=== PATIENT | male | born 1970 | race Caucasian/White ===

== ENCOUNTER 2025-02-21 18:05 | Observation (INO) ==
--- NOTE | 2025-02-21 18:23 | Emergency Department Note ---
Impression & Plan Abdominal pain, Nausea & vomiting, Pancreatitis ED Provider Note HISTORY OF PRESENT ILLNESS: Patient is a 54-year-old male presenting with abdominal pain, nausea and vomiting. Patient reports he has a history of a sigmoid stricture. He reports they attempted a colonoscopy 6 weeks ago but he was found to have recurrence of his stricture and they could not complete the colonoscopy. He reports that since then he has had progressively worsening pain in his left lower quadrant. He reports that yesterday he had significant nausea and has not been able to tolerate anything by mouth. He states that he had vomiting yesterday as well as today. He denies any fevers or chills. He does report he is still having bowel movements but "it is really hard and I have to strain." ROS: as above PHYSICAL EXAM: Constitutional: Patient appears in no acute distress. HENT: Head: Normocephalic and atraumatic. Eyes: EOMI, PERRL Mouth/Throat: Mucous membranes moist. Neck: Trachea midline. Neck supple. Cardiovascular: RRR, No murmurs, rubs or gallops. Intact distal pulses. Pulmonary/Chest: No respiratory distress. Breath sounds clear and equal bilaterally. No wheezes or rales. Abdominal: Abdomen soft, no rebound or guarding. LLQ TTP Musculoskeletal: No edema, tenderness or deformity noted. Skin: Warm and dry. No rash, erythema, pallor or cyanosis Psychiatric: Appropriate mood and affect for situation. Neurological: Alert and keenly responsive. CN II-XII grossly intact, moving all extremities equally and fully. MDM: - Vitals signs stable - History obtained via patient. History as above. - Chronic conditions affecting care: Ulcerative colitis; HTN; HLD - Differential diagnoses include, but are not limited to: Bowel obstruction; pancreatitis; viral syndrome; electrolyte abnormality; dehydration; diverticulitis - Order placed for continuous cardiac monitoring. At this time, monitor showed rate of 60 bpm with normal sinus rhythm, per my interpretation. - External medical records reviewed. Colonoscopy dated 12/26/2024 was reviewed. Patient was noted to have intrinsic severe stenosis measuring of unknown length x 9 mm at the sigmoid colon and was transversed and dilated. - Laboratory workup interpreted by myself showed normal WBC; stable electrolytes; normal AST/ALT; elevated lipase (123) - UA negative for infection - Patient initially given 4 mg IV zofran and 4 mg IV morphine in ER. On reassessment, patient became nauseous and again vomited. He was given 1 L normal saline and 4 mg IV Zofran. - CT abdomen/pelvis with IV contrast showed multifocal wall thickening of the large and small bowel loops concerning for Crohn's disease or infection. Noted to have dilation of the jejunum which could be due to ileus. - Given patient's persistent abdominal pain and nausea on reassessment, will discuss case with hospitalist service for admission for pancreatitis. - Discussion was had with case assembler about patient's case and need for admission - Hospitalist consulted for admission - Patient admitted to [facility] hospitalist service for further evaluation and management. ASSESSMENT AND PLAN: Diagnosis: abdominal pain; nausea and vomiting; pancreatitis Plan: admit Past Med/Surg History Problem List (Updated 02/21/25 @ 20:42 by Kyleigh Villanueva MD) Pancreatitis (Acute) Nausea & vomiting (Acute) Abdominal pain (Acute) Inguinal hernia bilateral, non-recurrent Periodic limb movement disorder (PLMD) Other ejaculatory dysfunction BPH w urinary obs/LUTS Sigmoid stricture Fatty liver Arthritis of knee Hyperlipemia Anxiety and depression Hypertension Alcoholism in recovery Ulcerative colitis (Acute) Medical History Recovering alcoholic Medical marijuana use Umbilical hernia Anxiety and depression Ulcerative colitis History of Lyme disease Osteoarthritis Fatty liver Hyperlipidemia Hypertension Sacral fracture (05/2024) Thoracic vertebral fracture (05/2024) Pubic ramus fracture (05/2024) Viral hepatitis C without hepatic coma Closed TBI (traumatic brain injury) Surgical History H/O pelvic surgery History of colonoscopy (12/2018) History of gastrostomy tube placement History of tracheostomy History of tooth extraction Family History Brother Alcoholism Anxiety Cardiac disorder Depression Drug abuse Hypertension Kidney stones Myocardial infarction Grandfather (Maternal) Colorectal cancer Father Alcoholism Anxiety Cardiac disorder Depression Drug abuse Hypertension Kidney stones Mother Anxiety Depression Hypertension Breast cancer Other No family history of adverse response to anesthesia Denies family history of Ovarian cancer Prostate cancer Social History Smoking Status: Never smoker Tobacco Type: Cigarettes Age Started Using Tobacco: 15; Age Quit Using Tobacco: 28; packs per day: 1; Second Hand Exposure: Yes (hx); Do You Dip or Chew Tobacco: No; Hx Alcohol Use: Yes (recovering alcoholic, none for ~1 year.) Alcohol type: beer Hx Substance Use: Yes Prescribed Medications: Marijuana Last Used Substance Other:: 12/16/24 (advised on policy) Substance Use Type Other:: Medical THC daily Preferred Language: Amharic Communication Ability: Effective Visual Impairment: No Limitations Hearing Ability: Normal It Application Administrator Required: No Beliefs That Will Affect Care: None marital status: Current Living Situation: Spouse current occupational status: employed 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 Feels Safe at Home: Yes Diet: regular Diet Comment: regular caffeine: Yes during the past year weight has: increased > 10 lbs Dental Care, Regularly: No Physical Activity Frequency: 1-2 Times per Week Seatbelt Use: always Sunscreen Use: No Assistive Devices: Glasses Allergies Allergies Allergy/AdvReac Type Severity Reaction Status Date / Time No Known Allergies Allergy Verified 02/07/25 11:14 Home Meds Home Medications Medication Instructions Recorded Confirmed acetaminophen 500 mg tablet 500 mg PO Q6H PRN Pain 06/23/24 02/21/25 mesalamine 1.2 gram tablet,delayed 2.4 g PO BID 06/23/24 02/21/25 release losartan 100 mg tablet 100 mg PO QAM 12/16/24 02/21/25 vitamin D3 25 mcg (1,000 unit)-vit 1 tab PO QAM 12/16/24 02/21/25 K2 90 mcg disintegrating tablet pregabalin 50 mg capsule 50 mg PO TID PRN Pain 01/30/25 02/21/25 Previous Rx's Medication Instructions Recorded multivitamin-ferrous 1 tab PO QAM #60 tabs 09/16/18 fumarate-folic acid 18 mg-400 mcg tablet (Centrum) ferrous sulfate 325 mg (65 mg 325 mg PO BID #60 tabs 01/31/25 iron) tablet fluoxetine 20 mg capsule 60 mg (3 x 20 mg) PO QAM 90 days 02/13/25 #270 caps Results & Data (ED) Vital Signs Vital Signs - 24 hr 02/21/25 18:05 02/21/25 18:06 02/21/25 18:16 Temperature 36.6 C Temperature Source Temporal Artery Scan Pulse Rate 68 72 Pulse Rate [Right Finger] 67 Pulse Rate from SpO2 Sensor Respiratory Rate 18 16 Respiratory Effort / Characteristics Non-Labored Spontaneous Respiratory Depth Normal Blood Pressure 136/86 Blood Pressure [Right Arm] 121/83 Blood Pressure Mean 102 Blood Pressure Mean [Right Arm] 95 Pulse Oximetry 95 96 Oxygen Delivery Method Room Air Sepsis Recent Fever Within 48 Hours No Sepsis New/Unexplained Change in Mental Status No Sepsis Action Taken by Nursing No Action Required 02/21/25 18:18 02/21/25 18:21 02/21/25 18:21 Temperature Temperature Source Pulse Rate 68 65 Pulse Rate [Right Finger] Pulse Rate from SpO2 Sensor Respiratory Rate 16 24 Respiratory Effort / Characteristics Respiratory Depth Blood Pressure Blood Pressure [Right Arm] Blood Pressure Mean Blood Pressure Mean [Right Arm] Pulse Oximetry 95 Oxygen Delivery Method Room Air Sepsis Recent Fever Within 48 Hours Sepsis New/Unexplained Change in Mental Status Sepsis Action Taken by Nursing 02/21/25 18:24 02/21/25 18:25 02/21/25 18:25 Temperature Temperature Source Pulse Rate 56 L Pulse Rate [Right Finger] Pulse Rate from SpO2 Sensor Respiratory Rate 28 H Respiratory Effort / Characteristics Respiratory Depth Blood Pressure 130/87 130/87 Blood Pressure [Right Arm] Blood Pressure Mean 98 98 Blood Pressure Mean [Right Arm] Pulse Oximetry Oxygen Delivery Method Sepsis Recent Fever Within 48 Hours Sepsis New/Unexplained Change in Mental Status Sepsis Action Taken by Nursing 02/21/25 18:25 02/21/25 18:25 02/21/25 18:30 Temperature Temperature Source Pulse Rate Pulse Rate [Right Finger] Pulse Rate from SpO2 Sensor Respiratory Rate Respiratory Effort / Characteristics Respiratory Depth Blood Pressure 130/87 130/87 121/83 Blood Pressure [Right Arm] Blood Pressure Mean 98 98 90 Blood Pressure Mean [Right Arm] Pulse Oximetry Oxygen Delivery Method Sepsis Recent Fever Within 48 Hours Sepsis New/Unexplained Change in Mental Status Sepsis Action Taken by Nursing 02/21/25 18:30 02/21/25 18:30 02/21/25 18:30 Temperature Temperature Source Pulse Rate Pulse Rate [Right Finger] Pulse Rate from SpO2 Sensor Respiratory Rate Respiratory Effort / Characteristics Respiratory Depth Blood Pressure 121/83 121/83 121/83 Blood Pressure [Right Arm] Blood Pressure Mean 90 90 90 Blood Pressure Mean [Right Arm] Pulse Oximetry Oxygen Delivery Method Sepsis Recent Fever Within 48 Hours Sepsis New/Unexplained Change in Mental Status Sepsis Action Taken by Nursing 02/21/25 18:30 02/21/25 18:30 02/21/25 18:42 Temperature Temperature Source Pulse Rate 59 L 64 Pulse Rate [Right Finger] Pulse Rate from SpO2 Sensor 58 L 63 Respiratory Rate 23 15 Respiratory Effort / Characteristics Respiratory Depth Blood Pressure 121/83 Blood Pressure [Right Arm] Blood Pressure Mean 90 Blood Pressure Mean [Right Arm] Pulse Oximetry 95 96 Oxygen Delivery Method Sepsis Recent Fever Within 48 Hours Sepsis New/Unexplained Change in Mental Status Sepsis Action Taken by Nursing 02/21/25 18:51 02/21/25 19:00 02/21/25 19:00 Temperature Temperature Source Pulse Rate 60 58 L Pulse Rate [Right Finger] Pulse Rate from SpO2 Sensor 60 Respiratory Rate 21 20 Respiratory Effort / Characteristics Respiratory Depth Blood Pressure 138/86 Blood Pressure [Right Arm] Blood Pressure Mean 101 Blood Pressure Mean [Right Arm] Pulse Oximetry 97 90 Oxygen Delivery Method Sepsis Recent Fever Within 48 Hours Sepsis New/Unexplained Change in Mental Status Sepsis Action Taken by Nursing 02/21/25 19:00 02/21/25 19:00 02/21/25 19:00 Temperature Temperature Source Pulse Rate Pulse Rate [Right Finger] Pulse Rate from SpO2 Sensor Respiratory Rate Respiratory Effort / Characteristics Respiratory Depth Blood Pressure 138/86 138/86 138/86 Blood Pressure [Right Arm] Blood Pressure Mean 101 101 101 Blood Pressure Mean [Right Arm] Pulse Oximetry Oxygen Delivery Method Sepsis Recent Fever Within 48 Hours Sepsis New/Unexplained Change in Mental Status Sepsis Action Taken by Nursing 02/21/25 19:00 02/21/25 19:30 02/21/25 19:30 Temperature Temperature Source Pulse Rate Pulse Rate [Right Finger] Pulse Rate from SpO2 Sensor Respiratory Rate Respiratory Effort / Characteristics Respiratory Depth Blood Pressure 138/86 143/93 H 143/93 H Blood Pressure [Right Arm] Blood Pressure Mean 101 113 113 Blood Pressure Mean [Right Arm] Pulse Oximetry Oxygen Delivery Method Sepsis Recent Fever Within 48 Hours Sepsis New/Unexplained Change in Mental Status Sepsis Action Taken by Nursing 02/21/25 19:30 02/21/25 19:30 02/21/25 19:30 Temperature Temperature Source Pulse Rate Pulse Rate [Right Finger] Pulse Rate from SpO2 Sensor Respiratory Rate Respiratory Effort / Characteristics Respiratory Depth Blood Pressure 143/93 H 143/93 H 143/93 H Blood Pressure [Right Arm] Blood Pressure Mean 113 113 113 Blood Pressure Mean [Right Arm] Pulse Oximetry Oxygen Delivery Method Sepsis Recent Fever Within 48 Hours Sepsis New/Unexplained Change in Mental Status Sepsis Action Taken by Nursing 02/21/25 19:30 02/21/25 19:42 02/21/25 19:51 Temperature Temperature Source Pulse Rate 60 54 L 54 L Pulse Rate [Right Finger] Pulse Rate from SpO2 Sensor 62 53 L 53 L Respiratory Rate 14 14 23 Respiratory Effort / Characteristics Respiratory Depth Blood Pressure Blood Pressure [Right Arm] Blood Pressure Mean Blood Pressure Mean [Right Arm] Pulse Oximetry 97 96 95 Oxygen Delivery Method Sepsis Recent Fever Within 48 Hours Sepsis New/Unexplained Change in Mental Status Sepsis Action Taken by Nursing 02/21/25 20:00 02/21/25 20:00 02/21/25 20:00 Temperature Temperature Source Pulse Rate 53 L Pulse Rate [Right Finger] Pulse Rate from SpO2 Sensor 52 L Respiratory Rate 19 Respiratory Effort / Characteristics Respiratory Depth Blood Pressure 139/95 139/95 Blood Pressure [Right Arm] Blood Pressure Mean 106 106 Blood Pressure Mean [Right Arm] Pulse Oximetry 96 Oxygen Delivery Method Sepsis Recent Fever Within 48 Hours Sepsis New/Unexplained Change in Mental Status Sepsis Action Taken by Nursing 02/21/25 20:00 02/21/25 20:00 02/21/25 20:00 Temperature Temperature Source Pulse Rate Pulse Rate [Right Finger] Pulse Rate from SpO2 Sensor Respiratory Rate Respiratory Effort / Characteristics Respiratory Depth Blood Pressure 139/95 139/95 139/95 Blood Pressure [Right Arm] Blood Pressure Mean 106 106 106 Blood Pressure Mean [Right Arm] Pulse Oximetry Oxygen Delivery Method Sepsis Recent Fever Within 48 Hours Sepsis New/Unexplained Change in Mental Status Sepsis Action Taken by Nursing 02/21/25 20:12 Temperature Temperature Source Pulse Rate 58 L Pulse Rate [Right Finger] Pulse Rate from SpO2 Sensor 54 L Respiratory Rate 19 Respiratory Effort / Characteristics Respiratory Depth Blood Pressure Blood Pressure [Right Arm] Blood Pressure Mean Blood Pressure Mean [Right Arm] Pulse Oximetry 95 Oxygen Delivery Method Sepsis Recent Fever Within 48 Hours Sepsis New/Unexplained Change in Mental Status Sepsis Action Taken by Nursing Laboratory Data 02/21/25 18:21 02/21/25 19:09 Lab Results 02/21/25 02/21/25 02/21/25 Range/Units 18:21 18:29 19:09 WBC 9.37 (4.8-10.8) K/ul RBC 4.83 (4.70-6.10) M/uL Hgb 14.4 (14.0-18.0) g/dL Hct 42.1 (42.0-52.0) % MCV 87.2 (80.0-100.0) fL MCH 29.8 (25.0-34.0) pg MCHC 34.2 (32.0-36.0) g/dL RDW Std Deviation 44.2 (36.4-46.3) fL RDW Coeff of Duran 13.8 (11.5-14.5) % Plt Count 338 (130-400) K/uL MPV 9.5 (9.4-12.4) fL Immature Gran % (Auto) 0.5 % Neut % (Auto) 59.1 % Lymph % (Auto) 27.3 % Wetzel % (Auto) 9.1 % Eos % (Auto) 3.6 % Baso % (Auto) 0.4 % Neut # (Auto) 5.53 (1.40-6.50) K/uL Lymph # (Auto) 2.56 (1.20-3.40) K/uL Wetzel # (Auto) 0.85 H (0.11-0.59) K/uL Eos # (Auto) 0.34 (0.00-0.50) K/uL Baso # (Auto) 0.04 (0.00-0.20) K/uL Immature Gran # (Auto) 0.05 (0.01-0.20) K/uL Sodium 137 (136-145) mmol/L Potassium TNP 3.6 Chloride 103 (98-107) mmol/L Carbon Dioxide 26 (21-32) mmol/L Anion Gap 8 (3-11) BUN 9 (6-23) mg/dl Creatinine 0.88 (0.6-1.4) mg/dl Est Cr Clr Drug Dosing 102.9 ml/min eGFR 100.92 BUN/Creatinine Ratio 10.2 (10-20) Glucose 72 (70-99(Fasting)) mg/dl Lactate 1.0 (0.4-2.0) mmol/L Calcium 9.1 (8.6-10.3) mg/dl Total Bilirubin 0.3 (0.2-1.0) mg/dl AST TNP 17 ALT 16 (7-52) U/L Alkaline Phosphatase 103 (34-104) U/L Total Protein 7.5 (6.0-8.3) gm/dl Albumin 4.2 (3.4-5.0) gm/dl Globulin 3.3 (2.5-4.0) gm/dl Albumin/Globulin Ratio 1.3 (0.9-2) Lipase 123 H (11-82) U/L Urine Color Urine Appearance (Clear) Urine pH (4.5-7.5) Ur Specific [place] (1.000-1.030) Urine Protein (Negative) Urine Glucose (UA) (Negative) Urine Ketones (Negative) Urine Blood (Negative) Urine Nitrite (Negative) Urine Bilirubin (Negative) Urine Urobilinogen (Negative) Ur Leukocyte Esterase (Negative) Urine WBC (Auto) (0-5) /hpf Urine RBC (Auto) (0-2) /hpf U Hyaline Cast (Auto) (0-2) /lpf U Epithel Cells (Auto) (0-2) /hpf Urine Bacteria (Auto) (None Seen) Urine Comment 02/21/25 Range/Units 19:25 WBC (4.8-10.8) K/ul RBC (4.70-6.10) M/uL Hgb (14.0-18.0) g/dL Hct (42.0-52.0) % MCV (80.0-100.0) fL MCH (25.0-34.0) pg MCHC (32.0-36.0) g/dL RDW Std Deviation (36.4-46.3) fL RDW Coeff of Duran (11.5-14.5) % Plt Count (130-400) K/uL MPV (9.4-12.4) fL Immature Gran % (Auto) % Neut % (Auto) % Lymph % (Auto) % Wetzel % (Auto) % Eos % (Auto) % Baso % (Auto) % Neut # (Auto) (1.40-6.50) K/uL Lymph # (Auto) (1.20-3.40) K/uL Wetzel # (Auto) (0.11-0.59) K/uL Eos # (Auto) (0.00-0.50) K/uL Baso # (Auto) (0.00-0.20) K/uL Immature Gran # (Auto) (0.01-0.20) K/uL Sodium (136-145) mmol/L Potassium Chloride (98-107) mmol/L Carbon Dioxide (21-32) mmol/L Anion Gap (3-11) BUN (6-23) mg/dl Creatinine (0.6-1.4) mg/dl Est Cr Clr Drug Dosing ml/min eGFR BUN/Creatinine Ratio (10-20) Glucose (70-99(Fasting)) mg/dl Lactate (0.4-2.0) mmol/L Calcium (8.6-10.3) mg/dl Total Bilirubin (0.2-1.0) mg/dl AST ALT (7-52) U/L Alkaline Phosphatase (34-104) U/L Total Protein (6.0-8.3) gm/dl Albumin (3.4-5.0) gm/dl Globulin (2.5-4.0) gm/dl Albumin/Globulin Ratio (0.9-2) Lipase (11-82) U/L Urine Color Yellow Urine Appearance Clear (Clear) Urine pH 6.0 (4.5-7.5) Ur Specific [place] 1.025 (1.000-1.030) Urine Protein Negative (Negative) Urine Glucose (UA) Negative (Negative) Urine Ketones Trace H (Negative) Urine Blood Negative (Negative) Urine Nitrite Negative (Negative) Urine Bilirubin Negative (Negative) Urine Urobilinogen Negative (Negative) Ur Leukocyte Esterase 1+ H (Negative) Urine WBC (Auto) 0-5 (0-5) /hpf Urine RBC (Auto) 0-2 (0-2) /hpf U Hyaline Cast (Auto) 0-2 (0-2) /lpf U Epithel Cells (Auto) 0-2 (0-2) /hpf Urine Bacteria (Auto) None Seen (None Seen) Urine Comment Administered Medications Discontinued Medications Sodium Chloride (Nss) 1,000 mls @ 999 mls/hr IV .Q1H1M ONE Stop: 02/21/25 19:20 Last Infusion: 02/21/25 20:10 Dose: Infused Documented By: michael Admin: 02/21/25 18:34 Dose: 999 mls/hr Documented By: michael Ioversol (Optiray 320 100ml) 90 ml IV ONCE ONE Stop: 02/21/25 19:14 Last Admin: 02/21/25 19:13 Dose: 90 ml Documented By: RUTH Morphine Sulfate (Morphine Sulfate 4 Mg/Ml 1 Ml Carp\\Vial) 4 mg IV NOW STA Stop: 02/21/25 18:21 Last Admin: 02/21/25 18:33 Dose: 4 mg Documented By: michael Ondansetron HCl (Ondansetron Inj 2 Mg/Ml 2 Ml Vial) 4 mg IV NOW STA Stop: 02/21/25 18:21 Last Admin: 02/21/25 18:33 Dose: 4 mg Documented By: michael Ondansetron HCl (Ondansetron Inj 2 Mg/Ml 2 Ml Vial) 4 mg IV NOW STA Stop: 02/21/25 19:22 Last Admin: 02/21/25 19:27 Dose: 4 mg Documented By: michael Imaging Data Radiologist's Impression: Abdomen/Pelvis CT 02/21/25 18:21 Clinical History: Left lower quadrant pain Technique: Axial computed tomography images were obtained of the abdomen and pelvis after the administration of intravenous contrast. Comparison is made to the prior CT dated 12/26/2024. Findings: The liver is overall of normal size, attenuation, and contour with no sign of cirrhosis or significant fatty infiltration. No liver mass lesion is seen. The portal vein is patent. The gallbladder appears unremarkable. No bile duct dilatation is noted. The spleen is of normal size. No focal splenic lesion is evident. The pancreas appears normal with no sign of acute or chronic pancreatitis and no mass lesion noted. The pancreatic duct is of normal caliber. The adrenal glands appear unremarkable. No definite renal or proximal ureteral calculi are seen on this contrast-enhanced study. There is no hydronephrosis or perinephric stranding. No renal mass lesion is identified. There are bilateral renal cysts, measuring up to 1.5 cm The aorta is of normal caliber. No abdominal adenopathy is seen. There is a small umbilical hernia containing only fat There is a small hiatal hernia. There is prominence of the gastric wall the could be due to incomplete distention. There is mild prominence of the jejunum that could be due to ileus. There is no definite sign of small bowel obstruction. There is multifocal small bowel wall thickening. There is also mild wall thickening of the distal transverse colon and the descending colon. No free intraperitoneal fluid or air is identified. No distal ureteral or bladder calculi are seen. No bladder mass lesion is evident. The iliac arteries are of normal caliber. No pelvic adenopathy is noted. There is bilateral lower lobe atelectasis. There are old pelvic fractures with internal fixation in place Impression: 1. Multifocal wall thickening of small and large bowel loops, concerning for infection or Crohn's disease 2. Mild dilatation of the jejunum the could be due to ileus. A partial small bowel obstruction is less likely but cannot be excluded 3. Bilateral renal cysts 4. Small hiatal hernia ACT 112: Positive. There are findings on this exam that require communication between the performing entity and the patient following Patient Test Result Information Act ([place] ACT 112) guidelines. Electronically signed by Cory Stahl 02-21-2025 7:39 PM Discharge Plan Visit Data Chief Complaint: GI Assessment Stated Complaint: RESTRICTED COLON, COMPLICATIONS ED Provider: Kyleigh Villanueva Discharge Problem: Abdominal pain, Nausea & vomiting, Pancreatitis Patient Disposition: Admitted As Inpatient Condition: Fair Forms Stand Alone Forms: [facility] [employer] Prescriptions Prescriptions: No Action ferrous sulfate 325 mg (65 mg iron) tablet 325 mg PO BID Qty: 60 0RF fluoxetine 20 mg capsule 60 mg PO QAM 90 Days Qty: 270 3RF Centrum 18-400 mg-mcg tablet 1 tab PO QAM Qty: 60 0RF pregabalin 50 mg capsule 50 mg PO TID PRN (Reason: Pain) vitamin D3-vitamin K2 25 mcg (1,000 unit)-90 mcg Tablet,Disintegrating 1 tab PO QAM losartan 100 mg tablet 100 mg PO QAM acetaminophen 500 mg Tablet 500 mg PO Q6H PRN (Reason: Pain) mesalamine 1.2 gram tablet,delayed release (DR/EC) 2.4 g PO BID Referrals Referrals: Rosanna Childers DO [Primary Care Provider] -
[2025-02-21] MEDS: ONDANSETRON INJ 2 MG/ML 2 ML VIAL IV STA ×2 (18:33→19:27)
[2025-02-21] MEDS: MoRPHine SULFATE 4 MG/ML 1 ML CARP\\VIAL IV STA (18:33)
[2025-02-21] MEDS: SODIUM CHLORIDE 0.9% 1,000 ML IV ONE (18:34)
[2025-02-21 18:37] LABS: Hematocrit (blood only) 42.1 % (42.0-52.0); Hemoglobin 14.4 g/dL (14.0-18.0); Immature Granulocytes # (auto) 0.05 K/uL (0.01-0.20); Immature Granulocytes % (auto) 0.5 %; Mean Corpuscular Hemoglobin 29.8 pg (25.0-34.0); Mean Corpuscular Volume 87.2 fL (80.0-100.0); Platelet Count 338 K/uL (130-400); RDW Standard Deviation 44.2 fL (36.4-46.3); Red Blood Count 4.83 M/uL (4.70-6.10); White Blood Count 9.37 K/ul (4.8-10.8)
[2025-02-21 19:03] LABS: Alanine Aminotransferase 16 U/L (7-52); Albumin Globulin Ratio 1.3 (0.9-2); Albumin Level 4.2 gm/dl (3.4-5.0); Alkaline Phosphatase 103 U/L (34-104); Anion Gap 8 (3-11); Bilirubin,Total 0.3 mg/dl (0.2-1.0); Blood Urea Nitrogen 9 mg/dl (6-23); Calcium 9.1 mg/dl (8.6-10.3); Carbon Dioxide 26 mmol/L (21-32); Chloride 103 mmol/L (98-107); Creatinine Clr Calc Pharmacy 102.9 ml/min; Globulin 3.3 gm/dl (2.5-4.0); Glucose 72 mg/dl (70-99(Fasting)); Lipase 123 U/L (11-82); Sodium 137 mmol/L (136-145); Total Protein 7.5 gm/dl (6.0-8.3)
[2025-02-21] MEDS: OPTIRAY 320 100ml IV ONE (19:13)
--- NOTE | 2025-02-21 19:39 | CT Scan Report ---
Clinical History: Left lower quadrant pain Technique: Axial computed tomography images were obtained of the abdomen and pelvis after the administration of intravenous contrast. Comparison is made to the prior CT dated 12/26/2024. Findings: The liver is overall of normal size, attenuation, and contour with no sign of cirrhosis or significant fatty infiltration. No liver mass lesion is seen. The portal vein is patent. The gallbladder appears unremarkable. No bile duct dilatation is noted. The spleen is of normal size. No focal splenic lesion is evident. The pancreas appears normal with no sign of acute or chronic pancreatitis and no mass lesion noted. The pancreatic duct is of normal caliber. The adrenal glands appear unremarkable. No definite renal or proximal ureteral calculi are seen on this contrast-enhanced study. There is no hydronephrosis or perinephric stranding. No renal mass lesion is identified. There are bilateral renal cysts, measuring up to 1.5 cm The aorta is of normal caliber. No abdominal adenopathy is seen. There is a small umbilical hernia containing only fat There is a small hiatal hernia. There is prominence of the gastric wall the could be due to incomplete distention. There is mild prominence of the jejunum that could be due to ileus. There is no definite sign of small bowel obstruction. There is multifocal small bowel wall thickening. There is also mild wall thickening of the distal transverse colon and the descending colon. No free intraperitoneal fluid or air is identified. No distal ureteral or bladder calculi are seen. No bladder mass lesion is evident. The iliac arteries are of normal caliber. No pelvic adenopathy is noted. There is bilateral lower lobe atelectasis. There are old pelvic fractures with internal fixation in place Impression: 1. Multifocal wall thickening of small and large bowel loops, concerning for infection or Crohn's disease 2. Mild dilatation of the jejunum the could be due to ileus. A partial small bowel obstruction is less likely but cannot be excluded 3. Bilateral renal cysts 4. Small hiatal hernia ACT 112: Positive. There are findings on this exam that require communication between the performing entity and the patient following Patient Test Result Information Act ([place] ACT 112) guidelines. Electronically signed by Cory Stahl 02-21-2025 7:39 PM
[2025-02-21 19:46] LABS: Appearance Urine Clear (Clear); Bacteria Urine Automated None Seen (None Seen); Cast Urine Automated 0-2 /lpf (0-2); Epithelial Cell Urine Auto 0-2 /hpf (0-2); Glucose Urine UA Negative (Negative); RBC Urine Automated 0-2 /hpf (0-2); WBC Urine Automated 0-5 /hpf (0-5)
[2025-02-21 19:47] LABS: Potassium 3.6 mmol/L (3.5-5.1)
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
[2025-02-21 20:45] LABS: Magnesium 1.9 mg/dl (1.7-2.4)
[2025-02-21] MEDS: PANTOprazole 40 MG/10 ML SYR IV ONE (21:04)
[2025-02-21] MEDS: ACETAMINOPHEN 1,000 MG/100 ML VIAL IV STA (21:04)
[2025-02-21] MEDS ORDERED: MELATONIN 3 MG TAB PO PRN (21:51)
[2025-02-21] MEDS ORDERED: PREGABALIN 50 MG CAP PO PRN (21:51)
[2025-02-21] MEDS ORDERED: ONDANSETRON INJ 2 MG/ML 2 ML VIAL IV PRN (21:51)
[2025-02-21] MEDS ORDERED: MoRPHine SULFATE 4 MG/ML 1 ML CARP\\VIAL IV PRN (21:51)
[2025-02-21] MEDS ORDERED: MoRPHine SULFATE 2 MG/ML CARP IV PRN (21:51)
[2025-02-21] MEDS ORDERED: DOCUSATE SODIUM 100 MG CAP PO PRN (21:51)
[2025-02-21] MEDS: LACTATED RINGER'S 1,000 ML IV SCH (22:09)
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
[2025-02-21] MEDS: MESALAMINE 1.2 GM TABDR PO SCH (22:58)
[2025-02-22 07:31] LABS: Hematocrit (blood only) 40.4 % (42.0-52.0); Hemoglobin 13.3 g/dL (14.0-18.0); Immature Granulocytes # (auto) 0.04 K/uL (0.01-0.20); Immature Granulocytes % (auto) 0.5 %; Mean Corpuscular Hemoglobin 28.7 pg (25.0-34.0); Mean Corpuscular Volume 87.3 fL (80.0-100.0); Platelet Count 276 K/uL (130-400); RDW Standard Deviation 44.0 fL (36.4-46.3); Red Blood Count 4.63 M/uL (4.70-6.10); White Blood Count 7.45 K/ul (4.8-10.8)
[2025-02-22 08:04] LABS: Alanine Aminotransferase 13.0 U/L (7-52); Albumin Globulin Ratio 1.3 (0.9-2); Albumin Level 3.5 gm/dl (3.4-5.0); Alkaline Phosphatase 88.0 U/L (34-104); Anion Gap 6.0 (3-11); Bilirubin,Total 0.4 mg/dl (0.2-1.0); Blood Urea Nitrogen 7.0 mg/dl (6-23); Calcium 8.5 mg/dl (8.6-10.3); Carbon Dioxide 27.0 mmol/L (21-32); Chloride 108.0 mmol/L (98-107); Creatinine Clr Calc Pharmacy 113.2 ml/min; Globulin 2.8 gm/dl (2.5-4.0); Glucose 87.0 mg/dl (70-99(Fasting)); Lipase 69.0 U/L (11-82); Magnesium 1.9 mg/dl (1.7-2.4); Potassium 4.0 mmol/L (3.5-5.1); Sodium 141.0 mmol/L (136-145); Total Protein 6.3 gm/dl (6.0-8.3)
[2025-02-22] MEDS: LOSARTAN POTASSIUM 50 MG TAB PO SCH (08:49)
[2025-02-22] MEDS: PANTOprazole 40 MG/10 ML SYR IV SCH (08:50)
[2025-02-22] MEDS: 4.5GM X1 IV STA (10:57)
--- NOTE | 2025-02-22 12:32 | Hospitalist Progress Note ---
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 Patient presented to the ED due to nausea and vomiting x 2 days as well as poor p.o. intake and left lower quadrant abdominal pain that has been progressive since his colonoscopy approximately 6 weeks ago. Workup in the ED revealed possible ileus versus SBO on CT, laboratories revealed elevated lipase however pancreas unremarkable on imaging. Patient is being admitted for nausea control, pain control, and to have further eval by general surgery. #Intractable abdominal pain | UC with sigmoid stricture known sigmoid stricture with progressive pain since colonoscopy 12/26. AP CT with ileus versus possible partial SBO. Patient is mildly distended with nausea/vomiting - will treat as a SBO for now. General surgery and GI teams consulted - possibly will require colon resection during this hospitalization Continue IVF resuscitation with LR 80 mL/hour x3 L Started Zosyn for antibiotic coverage of colitis Nausea control with scheduled pantoprazole, Zofran prn Pain control with IV Tylenol prn, Morphine 2/4mg for breakthrough pain Diet advanced to full liquids by general surgery Continue mesalamine Trend CBC #Elevated lipase lipase 123 on admission, now WNL at 69. AP CT showed pancreas unremarkable. Trend CMP and lipase #HTNcontinue losartan #Mental healthcontinue fluoxetine VTE ppx: SCDs, low risk and possible surgical management Dispo: Continued inpatient stay. Possibly will require surgical intervention during this hospitalization Started IV Zosyn Updated at bedside Admission and Anticipated Discharge Date Admission Date: February 21, 2025 Subjective Patient seen and evaluated at bedside with his present. He reports an improvement in his abdominal pain compared to yesterday. He denies any nausea or vomiting. He continues to pass gas. We discussed starting IV Zosyn for his colitis flare. He reports surgery plan is to perform surgical intervention possibly tomorrow. No additional complaints or concerns at this time. Physical Exam Physical Exam: General: No acute distress, nondiaphoretic, well-developed, well-nourished. Skin: Warm, dry. No rashes or peripheral edema noted. Cardiac: Regular rate and rhythm without murmurs gallops or rubs. Pulm: Clear to auscultation bilaterally without wheezes, rales or rhonchi. Normal respiratory effort. 95% on room air. Abdominal: Soft. Mild distention. Mild tenderness to palpation of lower quadrants bilaterally. No rebound or guarding. Bowel sounds present. Neuro: A&O x3. No focal neurological deficits. Results & Data Results & Data Vital Signs (Past 12 Hours) Vital Signs Temp Pulse Resp BP Pulse Ox O2 Del Method 02/22/25 08:02 97.6 F 57 L 19 147/91 H 95 Room Air Laboratory Results Reviewed CBC with differential, CMP/chemistries, UA Diagnostic Findings Reviewed CT A/P PG Care Time/CCT Total # of Minutes Spent Total Time Spent with Patient: Total time spent is greater than 50% in coordination of care (as documented) at patient's floor/unit and/or counseling patient: Coding Level of Care Code 02270 SUB INP/OBS CARE 3/50MIN Diagnoses Abdominal pain R10.9 Nausea & vomiting R11.2 Sigmoid stricture K56.699 Elevated lipase R74.8"
[2025-02-22] MEDS: PIPERACILLIN/TAZOBACTAM 4.5 GM/100 ML BAG IV SCH (15:44)
--- NOTE | 2025-02-22 17:19 | Surgery Progress Note ---
Date of Service February 22, 2025 Assessment & Plan (1) Ulcerative colitis with complication: Plan I agree with GI consult to see what they also think in regards to management of this patient. Briefly this patient is a 54-year-old male with ulcerative colitis, on mesalamine who has colonic stricturing disease. He was recently scoped by Dr. Ken and was found to have sigmoid stricture and strictures proximal to this as well. Dr. Ken feels that his rectum was relatively dis ease-free. Given this, he may be a good candidate for total abdominal colectomy with ileorectal anastomosis but will see with GI if there is anything else to offer as well. Admission and Anticipated Discharge Date Admission Date: February 21, 2025 Subjective Patient reports feeling improved, after discussing his history with him and his , it seems that his symptoms are intermittent with colonic obstruction type symptoms. 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 Review of Systems Review of Systems: All systems reviewed & are unremarkable except as noted in HPI & below Physical Exam Constitutional: WD/WN, vitals as above Eyes: PERRL, conjunctivae normal, anicteric sclerae ENMT: external ear and nose normal, oropharynx normal Neck: trachea midline, no thyromegaly Respiratory: Normal effort Cardiovascular: Rate/Rhythm: regular rate Gastrointestinal (Abdomen): Soft, nondistended, nontender Psychiatric: A+Ox3, euthymic affect Results & Data Vital Signs (Past 12 Hours) Vital Signs Temp Pulse Resp BP Pulse Ox O2 Del Method 02/22/25 15:08 36.8 C 53 L 20 138/79 97 Room Air 02/22/25 08:02 36.4 C 57 L 19 147/91 H 95 Room Air PG Care Time/CCT Total # of Minutes Spent Total Time Spent with Patient: Total time spent is greater than 50% in coordination of care (as documented) at patient's floor/unit and/or counseling patient: Coding Level of Care Code 91935 SUB INP/OBS CARE 2/35MIN Diagnoses Ulcerative colitis with complication K51.919
[2025-02-23 07:14] LABS: Hematocrit (blood only) 40.6 % (42.0-52.0); Hemoglobin 13.9 g/dL (14.0-18.0); Immature Granulocytes # (auto) 0.03 K/uL (0.01-0.20); Immature Granulocytes % (auto) 0.4 %; Mean Corpuscular Hemoglobin 29.2 pg (25.0-34.0); Mean Corpuscular Volume 85.3 fL (80.0-100.0); Platelet Count 267 K/uL (130-400); RDW Standard Deviation 42.5 fL (36.4-46.3); Red Blood Count 4.76 M/uL (4.70-6.10); White Blood Count 8.36 K/ul (4.8-10.8)
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
[2025-02-23 07:43] LABS: Alanine Aminotransferase 10.0 U/L (7-52); Albumin Globulin Ratio 1.2 (0.9-2); Albumin Level 3.6 gm/dl (3.4-5.0); Alkaline Phosphatase 92.0 U/L (34-104); Anion Gap 6.0 (3-11); Bilirubin,Total 0.4 mg/dl (0.2-1.0); Blood Urea Nitrogen 6.0 mg/dl (6-23); Calcium 8.6 mg/dl (8.6-10.3); Carbon Dioxide 27.0 mmol/L (21-32); Chloride 106.0 mmol/L (98-107); Creatinine Clr Calc Pharmacy 94.3 ml/min; Globulin 3.0 gm/dl (2.5-4.0); Glucose 93.0 mg/dl (70-99(Fasting)); Lipase 98.0 U/L (11-82); Magnesium 1.8 mg/dl (1.7-2.4); Potassium 3.6 mmol/L (3.5-5.1); Sodium 139.0 mmol/L (136-145); Total Protein 6.6 gm/dl (6.0-8.3)
--- NOTE | 2025-02-23 09:47 | Surgery Progress Note ---
<Statement entered by Migdalia Poole MD - 02/23/25 12:56> I independently saw and examined the patient, and I agree with the assessment and plan of care. Date of Service February 23, 2025 Assessment & Plan (1) Ulcerative colitis with complication: Plan: Patient here w/ ulcerative colitis with stricturing colonic disease dealing with intermittent symptoms for quite some time we appreciate GI and medicines assistance we are tentatively planning on total abdominal colectomy with ileorectal anastomosis tomorrow plan for bowel prep today and clears npo at midnight, hold blood thinners Admission and Anticipated Discharge Date Admission Date: February 21, 2025 Subjective Patient reports tolerating a diet. Reports ongoing symptoms for quite some time. Physical Exam Physical Exam: awake/alert, no distress Gastrointestinal (Abdomen): Percussion/Palpation: abdomen soft Results & Data Vital Signs (Past 12 Hours) Vital Signs Temp Pulse Resp BP Pulse Ox O2 Del Method 02/23/25 07:26 97.5 F L 52 L 17 161/61 H 98 Room Air 02/22/25 22:47 97.4 F L 50 L 16 150/78 H 97 Room Air PG Care Time/CCT Total # of Minutes Spent Total Time Spent with Patient: Total time spent is greater than 50% in coordination of care (as documented) at patient's floor/unit and/or counseling patient: Coding Level of Care Code 41470 SUB INP/OBS CARE 04/16MIN Diagnoses Ulcerative colitis with complication K51.919
[2025-02-23] MEDS: metroNIDAZOLE 500 MG TAB PO ONE ×3 (15:09→22:00)
[2025-02-23] MEDS: NEOMYCIN SULFATE 500 MG TAB PO ONE ×3 (15:10→22:00)
[2025-02-23] MEDS: POLYETHYLENE (MIRALAX) 17 GM PACK PO ONE (17:13)
--- NOTE | 2025-02-23 19:55 | Hospitalist Progress Note ---
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 Patient presented to the ED due to nausea and vomiting x 2 days as well as poor p.o. intake and left lower quadrant abdominal pain that has been progressive since his colonoscopy approximately 6 weeks ago. Workup in the ED revealed possible ileus versus SBO on CT, laboratories revealed elevated lipase however pancreas unremarkable on imaging. Patient is being admitted for nausea control, pain control, and to have further eval by general surgery. #Intractable abdominal pain | UC with sigmoid stricture known sigmoid stricture with progressive pain since colonoscopy 12/26. AP CT with ileus versus possible partial SBO. Patient is mildly distended with nausea/vomiting - will treat as a SBO for now. General surgery and GI teams consulted -planning on total colectomy with ileorectal anastomosis tomorrow 02/24 Continue IVF resuscitation with LR 80 mL/hour x3 L Started Zosyn for antibiotic coverage of colitis Nausea control with scheduled pantoprazole, Zofran prn Pain control with IV Tylenol prn, Morphine 2/4mg for breakthrough pain Diet advanced to full liquids by general surgery Continue mesalamine Trend CBC #Elevated lipase Lipase 123 on admission -> 69 -> 98 - AP CT showed pancreas unremarkable Trend CMP and lipase #HTNcontinue losartan #Mental healthcontinue fluoxetine VTE ppx: SCDs, low risk and possible surgical management Dispo: Continued inpatient stay. Anticipate surgery tomorrow 02/24 Admission and Anticipated Discharge Date Admission Date: February 21, 2025 Subjective Patient seen and evaluated at bedside this morning. He denies any abdominal pain or nausea at this time. He had multiple questions regarding his surgery tomorrow. I answered them to the best of his ability and encouraged him to ask Dr. Poole when he sees her. No additional complaints or concerns at this time. Physical Exam Physical Exam: General: No acute distress, nondiaphoretic, well-developed, well-nourished. Skin: Warm, dry. No rashes or peripheral edema noted. Cardiac: Regular rate and rhythm without murmurs gallops or rubs. Pulm: Clear to auscultation bilaterally without wheezes, rales or rhonchi. Normal respiratory effort. 99% on room air. Abdominal: Soft. Mild distention. Mild tenderness to palpation of lower quadrants bilaterally. No rebound or guarding. Bowel sounds present. Neuro: A&O x3. No focal neurological deficits. Results & Data Results & Data Vital Signs (Past 12 Hours) Vital Signs Temp Pulse Resp BP Pulse Ox O2 Del Method 02/23/25 14:40 97.9 F 58 L 16 155/90 H 99 Room Air Laboratory Results Reviewed CBC with differential, CMP PG Care Time/CCT Total # of Minutes Spent Total Time Spent with Patient: Total time spent is greater than 50% in coordination of care (as documented) at patient's floor/unit and/or counseling patient: Coding Level of Care Code 59361 SUB INP/OBS CARE 2/35MIN Diagnoses Abdominal pain R10.9 Nausea & vomiting R11.2 Sigmoid stricture K56.699 Elevated lipase R74.8"
[2025-02-23] MEDS: ACETAMINOPHEN 1,000 MG/100 ML VIAL IV PRN (20:06)
[2025-02-23] MEDS ORDERED: NEOMYCIN SULFATE 500 MG TAB PO ONE (22:00)
[2025-02-24 06:39] LABS: Hematocrit (blood only) 42.5 % (42.0-52.0); Hemoglobin 14.6 g/dL (14.0-18.0); Mean Corpuscular Hemoglobin 29.0 pg (25.0-34.0); Mean Corpuscular Volume 84.3 fL (80.0-100.0); Platelet Count 307 K/uL (130-400); RDW Standard Deviation 42.0 fL (36.4-46.3); Red Blood Count 5.04 M/uL (4.70-6.10); White Blood Count 9.05 K/ul (4.8-10.8)
[2025-02-24 07:00] LABS: Anion Gap 8.0 (3-11); Blood Urea Nitrogen 6.0 mg/dl (6-23); Calcium 9.0 mg/dl (8.6-10.3); Carbon Dioxide 21.0 mmol/L (21-32); Chloride 109.0 mmol/L (98-107); Creatinine Clr Calc Pharmacy 96.3 ml/min; Glucose 101.0 mg/dl (70-99(Fasting)); Lipase 79.0 U/L (11-82); Potassium 3.5 mmol/L (3.5-5.1); Sodium 138.0 mmol/L (136-145)
[2025-02-24 07:12] VITALS: BP 157/97; PULSE 68; RESP 17; TEMP 97.7; O2SAT 97
--- NOTE | 2025-02-24 09:41 | Surgery Progress Note ---
Date of Service February 24, 2025 Assessment & Plan (1) Colitis: Plan: Unclear etiology, given that he has had colonic strictures and multiple CAT scans, each with different findings, with his CAT scan, he had some thickening of small bowel but this was not seen on prior CAT scan and none of the CAT scans show stricture where it is so severe that it is causing an obstruction. In addition, the patient has not tried other medications to treat IBD other than me salamine and even with that he was not accurately taking it. Given that he is nontoxic and is tolerating oral intake, we will try nonoperative management at this time. I had a lengthy discussion with him today regarding risks and benefits of surgery, given that he reports that he has not really been taking his mesalamine correctly and in addition has not tried any other ulcerative colitis medications such as immunologics, and given that he is nontoxic in appearance and is tolerating oral intake and without any abdominal pain, he has more pain actually from his inguinal hernia, I think a trial of nonoperative management for his ulcerative colitis may be indicated especially given that he has rectal sparing, which is not typical for ulcerative colitis, given this, he may even have a diff erent type of IBD such as Crohn's. Plan will be for taking the correct dose of mesalamine, oral steroids,as a Dosepak, and short interval follow-up with me and will likely plan for repeat colonoscopy with biopsies to see how things look at that time. Admission and Anticipated Discharge Date Admission Date: February 21, 2025 Subjective Patient reports feeling well, he has felt well in terms of abdominal pain for the past few days. I had a lengthy discussion with him today regarding risks and benefits of surgery, given that he reports that he has not really been taking his mesalamine correctly and in addition has not tried any other ulcerative colitis medications such as immunologics, and given that he is nontoxic in appearance and is tolerating oral intake and without any abdominal pain, he has more pain actually from his inguinal hernia, I think a trial of nonoperative management for his ulcerative colitis may be indicated especially given that he has rectal sparing, which is not typical for ulcerative colitis, given this, he may even have a different type of IBD such as Crohn's. Plan will be for taking the correct dose of mesalamine, oral steroids,as a Dosepak, and short interval follow-up with me and will likely plan for repeat colonoscopy with biopsies to see how things look at that time. Review of Systems Review of Systems: All systems reviewed & are unremarkable except as noted in HPI & below Physical Exam Constitutional: WD/WN, vitals as above Eyes: PERRL, conjunctivae normal, anicteric sclerae ENMT: external ear and nose normal, oropharynx normal Respiratory: Normal effort Gastrointestinal (Abdomen): Soft, nondistended, nontender Results & Data Vital Signs (Past 12 Hours) Vital Signs Temp Pulse Resp BP Pulse Ox O2 Del Method 02/24/25 07:12 36.5 C 68 17 157/97 H 97 Room Air 02/23/25 22:35 36.6 C 53 L 16 154/92 H 99 Room Air PG Care Time/CCT Total # of Minutes Spent Total Time Spent with Patient: Total time spent is greater than 50% in coordination of care (as documented) at patient's floor/unit and/or counseling patient: Coding Level of Care Code 12303 SUB INP/OBS CARE 2/35MIN Diagnoses Colitis K52.9
--- NOTE | 2025-02-24 18:28 | Discharge Summary ---
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 Patient presented to the ED due to nausea and vomiting x 2 days as well as poor p.o. intake and left lower quadrant abdominal pain that has been progressive since his colonoscopy approximately 6 weeks ago. Workup in the ED revealed possible ileus versus SBO on CT, laboratories revealed elevated lipase however pancreas unremarkable on imaging. Patient is being admitted for nausea control, pain control, and to have further eval by general surgery. #Intractable abdominal pain | UC with sigmoid stricture known sigmoid stricture with progressive pain since colonoscopy 12/26. AP CT with ileus versus possible partial SBO - General surgery and GI teams consulted - initially planned on total colectomy with ileorectal anastomosis, however ultimately decided on a trial of nonoperative management. It was discovered that patient was not taking his mesalamine properly. He has never tried immunologics. Additionally, his UC spares his rectum which is not typical for UC, so there is a chance he has Crohn's instead - Given IV Zosyn during his hospitalization to cover for colitis but no antibiotics indicated or recommended by surgical team on discharge - Well-tolerated low-fiber diet. Instructed to follow a low fiber diet until he follows up with Dr. Poole from colorectal surgery in the clinic. Dietitian met with patient prior to discharge to discuss foods to prioritize/avoid. Low fiber diet handout provided on discharge as well - Discharged with Medrol Dosepak per general surgery's request - Continue mesalamine - Follow-up with Dr. Poole in 1-2 weeks outpatient #Elevated lipase - Lipase intermittently elevated - 123 on admission -> 69 -> 98 -> 79. CT A/P showed pancreas unremarkable #HTNcontinue losartan #Mental healthcontinue fluoxetine VTE ppx: SCDs Dispo: Discharged home 02/24 Notes For Next Care Provider Follow-up with general surgery in 1-2 weeks outpatient after trial of steroids, consistent mesalamine, and dietary adjustments. Recommend repeating a colonoscopy when appropriate. Question if patient has UC versus Crohn's. 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 Patient presented to the ED due to nausea and vomiting x 2 days as well as poor p.o. intake and left lower quadrant abdominal pain that has been progressive since his colonoscopy approximately 6 weeks ago. Workup in the ED revealed possible ileus versus SBO on CT, laboratories revealed elevated lipase however pancreas unremarkable on imaging. Patient is being admitted for nausea control, pain control, and to have further eval by general surgery. Patient seen at bedside with his present. Patient stated that he has known ulcerative colitis with a sigmoid stricture that was dilated in the past. He had a colonoscopy 12/26 which was unsuccessful because the stricture was still present. He stated a general surgeon, Dr. oPole, previously called him to discuss that this will likely need surgical management and to come into the ED if patient has significant symptoms or pain. Patient has had progressive pain since the colonoscopy as well as poor p.o. intake. Yesterday he developed significant nausea and vomiting. He has intermittent diarrhea however at baseline with his ulcerative colitis. He does endorse some stool incontinence and has been having difficulty having bowel movements and has to strain significantly recently. He denies any hematochezia, does have hemorrhoids. He stated he did have black stool previously when he was on an iron supplement however has since stopped iron and all of his vitamins in preparation of a possible surgery. He denies any nicotine use. Denies any alcohol use, last drink 1.5 years ago. Is a daily medical marijuana user. He took all of his home medications today. He wishes to be full code. Previous medical records reviewed. Patient has been following with [facility] neurosurgery after a fall 06/16/24 from a ladder resulting in a T6 compression fracture and right sacrum and pubic fracture (s/p surgical fixation). He was treated for Lyme's dz with amoxicillin 10/13/24. Discharge Exam General: No acute distress, nondiaphoretic, well-developed, well-nourished. Skin: Warm, dry. No rashes or peripheral edema noted. Cardiac: Regular rate and rhythm without murmurs gallops or rubs. Pulm: Clear to auscultation bilaterally without wheezes, rales or rhonchi. Normal respiratory effort. 97% on room air. Abdominal: Soft, nontender, nondistended. No rebound or guarding. Bowel sounds present. Neuro: A&O x3. No focal neurological deficits. Discharge Plan Discharge Items Patient Disposition: Home - Self-Care Reason For Visit: UC WITH SIGMOID STRICTURE(SYMPTOMATIC)ILEUS VS SBO Discharge Diagnosis: Colitis, IBD flare Condition on Discharge: Fair Activity: Resume your previous activity Non-emergency contact: Primary Care Provider and Surgeon Call non-emergency contact if: you have any medication questions, your symptoms worsen, your pain is not controlled and you have a fever Follow-up/Referrals: Rosanna Childers DO [Primary Care Provider] - 03/06/25 9:20 am (Follow-up in 1-2 weeks) Migdalia Poole MD [Surgeon] - (follow up with Dr. Poole in the next 1-2 weeks for post hospital check up ) Diet: Low Fiber Addtl Attending Provider Instructions: Gio, You were admitted to the hospital with abdominal pain, nausea and vomiting. Your workup revealed colitis but the etiology is unclear. You were initially planned to have surgery with our colorectal surgeon, Dr. Poole, however after further discussion it was decided to trial nonoperative management. You have tolerated the resumption of a low fiber diet and are ready to be discharged home at this time. Upon discharge from the hospital: * Take methylprednisolone (oral steroid) as directed on the package insert for the Medrol Dosepak. * Follow a low fiber diet. The handout with further information on low fiber diets has been included with your discharge paperwork. * Follow-up with Dr. Poole in the office in 1-2 weeks. * Follow-up with your PCP in 1-2 weeks. Please return to the hospital if you experience any of the following: Severe abdominal pain, inability to tolerate oral intake, lightheadedness, dizziness, passing out, new or worsening confusion, chest pain, difficulty breathing, or any other symptoms concerning for you. It was a pleasure taking care of you while you were in the hospital! Pending Studies at Discharge: No Stand-Alone Forms: My [facility], Smoking Cessation Medications and DC Order Prescriptions: New methylprednisolone [Medrol (Kranthi)] 4 mg tablets,dose pack 4 mg PO UD Qty: 21 0RF Rx Instructions: Please follow taper dosing instructions on package insert. Continued ferrous sulfate 325 mg (65 mg iron) tablet 325 mg PO BID Qty: 60 0RF fluoxetine 20 mg capsule 60 mg PO QAM 90 Days Qty: 270 3RF Centrum 18-400 mg-mcg tablet 1 tab PO QAM Qty: 60 0RF pregabalin 50 mg capsule 50 mg PO TID PRN (Reason: Pain) vitamin D3-vitamin K2 25 mcg (1,000 unit)-90 mcg Tablet,Disintegrating 1 tab PO QAM losartan 100 mg tablet 100 mg PO QAM acetaminophen 500 mg Tablet 500 mg PO Q6H PRN (Reason: Pain) mesalamine 1.2 gram tablet,delayed release (DR/EC) 2.4 g PO BID Discharge Orders: Discharge Order (Routine); Ordered 02/24/25 Ordered By: Georgia Mccracken/Other Patient Handouts: Low-Fiber Diet Admission Data Admit Date/Time: 02/21/25 20:54 Attending Provider: Alvin Martinez Admit Provider: Shantelle Ramirez Primary Care Provider: Rosanna Childers Other Providers: Shantelle Ramirez; Migdalia Poole; Timothy Cespedes; Huey Ken; Elise Pantoja; Ruth Pa; Crystal Gonzalez; Marie Dawkins; Jose De Jesus Bower; Remy Hui; Nikki Ponce; Marily Duque; Karin Duff; Carrie Rizzo; Chelsea Fish; Rosibel Paredes; Preston Aggarwal; Jose Go; Malathi Mcgee; Craly Farah Jr; Travis Rodriguez; Rick Hammer; Nolan Ureña; Marva Padilla; Julio Maza I; Kari Bradford; Nik Lilly; Jeremie Chávez; Rufino Yu; Benedicto Roberson; Marni House Other Interventions: Discharge Summary Assessment (RN) Last Done: 02/24/25 14:22 Hospital Stay Data Consultations 02/21/25 20:18 ED Decision to Admit Stat 02/21/25 20:45 Consult General Surgery Routine 02/22/25 15:24 Consult Gastroenterology Routine Procedures Performed Operation Date: 02/24/25 12:30 <No data on this case meets the specified criteria> Diagnostic Imagining Performed Abdomen/Pelvis CT 02/21/25 18:21 Clinical History: Left lower quadrant pain Technique: Axial computed tomography images were obtained of the abdomen and pelvis after the administration of intravenous contrast. Comparison is made to the prior CT dated 12/26/2024. Findings: The liver is overall of normal size, attenuation, and contour with no sign of cirrhosis or significant fatty infiltration. No liver mass lesion is seen. The portal vein is patent. The gallbladder appears unremarkable. No bile duct dilatation is noted. The spleen is of normal size. No focal splenic lesion is evident. The pancreas appears normal with no sign of acute or chronic pancreatitis and no mass lesion noted. The pancreatic duct is of normal caliber. The adrenal glands appear unremarkable. No definite renal or proximal ureteral calculi are seen on this contrast-enhanced study. There is no hydronephrosis or perinephric stranding. No renal mass lesion is identified. There are bilateral renal cysts, measuring up to 1.5 cm The aorta is of normal caliber. No abdominal adenopathy is seen. There is a small umbilical hernia containing only fat There is a small hiatal hernia. There is prominence of the gastric wall the could be due to incomplete distention. There is mild prominence of the jejunum that could be due to ileus. There is no definite sign of small bowel obstruction. There is multifocal small bowel wall thickening. There is also mild wall thickening of the distal transverse colon and the descending colon. No free intraperitoneal fluid or air is identified. No distal ureteral or bladder calculi are seen. No bladder mass lesion is evident. The iliac arteries are of normal caliber. No pelvic adenopathy is noted. There is bilateral lower lobe atelectasis. There are old pelvic fractures with internal fixation in place Impression: 1. Multifocal wall thickening of small and large bowel loops, concerning for infection or Crohn's disease 2. Mild dilatation of the jejunum the could be due to ileus. A partial small bowel obstruction is less likely but cannot be excluded 3. Bilateral renal cysts 4. Small hiatal hernia ACT 112: Positive. There are findings on this exam that require communication between the performing entity and the patient following Patient Test Result Information Act ([place] ACT 112) guidelines. Electronically signed by Cory Stahl 02-21-2025 7:39 PM Pending Results Patient Have Any Pending Studies at Discharge: No Discharge Instructions Given to Patient (Per Discharging Provider) Gio, You were admitted to the hospital with abdominal pain, nausea and vomiting. Your workup revealed colitis but the etiology is unclear. You were initially planned to have surgery with our colorectal surgeon, Dr. Poole, however after further discussion it was decided to trial nonoperative management. You have tolerated the resumption of a low fiber diet and are ready to be discharged home at this time. Upon discharge from the hospital: * Take methylprednisolone (oral steroid) as directed on the package insert for the Medrol Dosepak. * Follow a low fiber diet. The handout with further information on low fiber diets has been included with your discharge paperwork. * Follow-up with Dr. Poole in the office in 1-2 weeks. * Follow-up with your PCP in 1-2 weeks. Please return to the hospital if you experience any of the following: Severe abdominal pain, inability to tolerate oral intake, lightheadedness, dizziness, passing out, new or worsening confusion, chest pain, difficulty breathing, or any other symptoms concerning for you. It was a pleasure taking care of you while you were in the hospital! Total Time Total Time Spent Total Time Spent (In Minutes): Greater than 30 minutes spent completing this discharge process including direct patient care, medication reconciliation, documentation, review of labs and images, and coordination of care. Coding Level of Care Code 98007 INP/OBS DISCH >30 MIN Diagnoses Abdominal pain R10.9 Nausea & vomiting R11.2 Sigmoid stricture K56.699 Elevated lipase R74.8"
== END 2025-02-24 14:39 | disposition home or self-care (01) | DRG 386 ==
LOC: ED 18:05 → SUATTDRO 20:54 → INTOOBSV 20:54 → 3N 20:54